=== PATIENT | female | born 1960 | race Caucasian/White ===

== ENCOUNTER → 2022-05-02 13:51 | Outpatient (BNVA) | payer OTHER, SELFPAY | PROVIDERS: PCP Internal Medicine; Visit Provider Internal Medicine Rheumatology | DX: M79.7 Fibromyalgia (principal); M79.672 Pain in left foot | CPT/HCPCS: 99212 ==

== ENCOUNTER 2022-05-05 09:23 | Outpatient (REF) | payer OTHER, SELFPAY ==
--- NOTE | ~2022-05-05 | XR_ITS ---
EXAMINATION: XR foot LT min 3V CLINICAL INFORMATION: Reason for Exam M79.672 - Pain in left foot COMPARISON: None. TECHNIQUE: AP, lateral, and oblique views of the left foot XR/XR foot LT min 3V FINDINGS/IMPRESSION: * No acute fracture or dislocation. * Joint spaces are maintained without significant degenerative change. * No soft tissue abnormality.
== END 2022-05-05 09:24 | disposition home or self-care (01) ==
LOC: HO.XRAY 09:23
PROVIDERS: PCP Internal Medicine; Visit Provider Internal Medicine Rheumatology
DX: M79.672 Pain in left foot (principal); M79.7 Fibromyalgia
CPT/HCPCS: 73630

== ENCOUNTER → 2022-10-27 08:37 | Outpatient (BNVA) | payer OTHER, SELFPAY | PROVIDERS: PCP Internal Medicine; Visit Provider Internal Medicine Rheumatology | DX: M72.2 Plantar fascial fibromatosis (principal); M79.7 Fibromyalgia | CPT/HCPCS: 99212 ==

== ENCOUNTER 2023-10-31 09:09 | Outpatient (AMB) | payer OTHER, SELFPAY ==
--- NOTE | 2023-10-31 09:15 | MHC.OFFVIS ---
Vital Signs 10/31/23 09:16 Height 5 ft 3 in Weight 192 lb 10.944 oz BMI 34.1 BP 122/64 Blood Pressure Location Rt brachial Position Sitting Pulse 83 Pulse Source Pulse Oximeter Pulse Oximetry (%) 95 Oxygen Delivery Method Room Air Intake Visit Reasons: RA Intake Note: Patient last seen by Dr Mendez 10/27/22 presents today for 1 year follow up. Recruiting Operations Consultant Required: No Accompanied by: Spouse Allergies No Known Allergies Allergy (Unverified 10/31/23 09:32) Medication List - Last Reconciled 10/31/23 by Nadia Mattson MD acetaminophen (Tylenol) 650 mg PO Q4H PRN aspirin (Adult Low Dose Aspirin) 81 mg PO DAILY duloxetine 20 mg PO DAILY multivitamin 1 tab PO DAILY pregabalin 200 mg PO BID rosuvastatin 40 mg PO DAILY HPI Comments Details: 63-year-old female with fibromyalgia returns for follow-up. Continues to have ongoing muscle aches, but feels about the same overall. Symptoms fairly well controlled with duloxetine and pregabalin Most recent history by Dr. Mendez 10/2022: The patient returns today with her for evaluation of her fibromyalgia. She says symptoms are about the same. She seems to be tolerating Cymbalta 20 mg daily and Lyrica 200 mg twice a day. These medicines do not cause any sedation. She gets pain in the feet intermittently mostly around the heels but also sometimes pains are in the shoulders, neck, and hands. She has plans to go to [facility] to be with family this summer and probably will not be back in the [place] untill the fall. She is going to be living in [place] at that point but come back in next spring to [place]. [facility], [facility] Surgical History No pertinent past surgical history Family History Father Hypertension Coronary artery disease Hyperlipidemia Social History Household Members: Spouse Housing: House Alcohol intake: never Patient Tobacco Use Status: Current someday Tobacco user Tobacco use type: Cigarette e-Cigarette/Vaping Use: Never Used service: No Current occupational status: retired Current occupation: Department store merchandiser previously Review of Systems [facility] Details: Muscle pain Reports myalgias Physical Exam Vital Signs: Last Vital Signs Pulse 83 10/31/23 09:16 BP 122/64 10/31/23 09:16 Pulse Ox 95 10/31/23 09:16 Oxygen Delivery Method Room Air 10/31/23 09:16 BMI result Body Mass Index 34.1 Const General: cooperative, healthy appearing and comfortable Nutritional Appearance: obese Orientation/consciousness: patient oriented x3 Limitations: no limitations HEENT Head: Yes normocephalic and Yes atraumatic Mouth: moist mucous membranes Resp Effort & Inspection: normal respiratory effort and able to speak in complete sentences Auscultation: clear to auscultation bilaterally Cardio Rate: regular rate Rhythm: regular rhythm GI Inspection: No distended Palpation (GI): Soft to palpation and nontender Neuro General: patient oriented x3 Extrem Other: No active synovitis. Assessment & Plan Assessment & Plan (1) Fibromyalgia: Code(s): M79.7 - Fibromyalgia Category: Medical Plan: 63-year-old female with fibromyalgia returns for follow-up. This is her 1st visit with me. She used to follow-up with Dr. Mendez. Her symptoms are fairly well controlled with duloxetine 20 mg daily and pregabalin 200 mg Twice daily. I refilled her pregabalin. She gets the duloxetine from another provider. Follow-up in 6 months Plan I spent 15 minutes reviewing patient's chart, evaluating patient, , counseling patient and documenting in the chart Medications: Refilled pregabalin 200 mg PO BID 60 caps 5RF M79.7 - Fibromyalgia
[2023-10-31 09:16] VITALS: BP 122/64; PULSE 83; O2SAT 95; BMI 34.1
== END 2023-10-31 09:44 | disposition home or self-care (01) ==
LOC: HO.RHE 09:09
PROVIDERS: PCP Internal Medicine; Visit Provider Student in an Organized Health Care Education/Training Program
DX: M79.7 Fibromyalgia (principal)
CPT/HCPCS: 99213

== ENCOUNTER → 2023-10-31 09:09 | Outpatient (BNVA) | payer OTHER, SELFPAY | PROVIDERS: PCP Internal Medicine; Visit Provider Student in an Organized Health Care Education/Training Program | DX: M79.7 Fibromyalgia (principal) | CPT/HCPCS: 99212 ==

== ENCOUNTER 2024-05-01 09:19 | Outpatient (AMB) | payer OTHER, SELFPAY ==
--- NOTE | 2024-05-01 09:22 | A.OFFVIS_ITS ---
Vital Signs 05/01/24 09:27 Height 5 ft 3 in Weight 192 lb 10.944 oz BMI 34.1 BP 130/62 Blood Pressure Location Rt brachial Position Sitting Pulse 74 Pulse Source Pulse Oximeter Pulse Oximetry (%) 94 Oxygen Delivery Method Room Air Intake Visit Reasons: FMS Intake Note: Patient presents for FMS. Allergies No Known Allergies Allergy (Verified 05/01/24 09:27) Medication List - Last Reconciled 05/01/24 by Nadia Mattson MD acetaminophen (Tylenol) 650 mg PO Q4H PRN aspirin (Adult Low Dose Aspirin) 81 mg PO DAILY duloxetine 20 mg PO DAILY multivitamin 1 tab PO DAILY pregabalin 200 mg PO BID rosuvastatin 40 mg PO DAILY HPI Comments Details: 64 year-old female with fibromyalgia returns for follow-up. Continues to have ongoing muscle aches, but feels about the same overall. 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 [employer] Reports myalgias Physical Exam Vital Signs: Last Vital Signs Pulse 74 05/01/24 09:27 BP 130/62 05/01/24 09:27 Pulse Ox 94 05/01/24 09:27 Oxygen Delivery Method Room Air 05/01/24 09:27 BMI result Body Mass Index 34.1 Const General: cooperative, healthy appearing and comfortable Nutritional Appearance: obese Orientation/consciousness: patient oriented x3 Limitations: no limitations HEENT Head: Yes normocephalic and Yes atraumatic Mouth: moist mucous membranes Resp Effort & Inspection: normal respiratory effort and able to speak in complete sentences Auscultation: clear to auscultation bilaterally Cardio Rate: regular rate Rhythm: regular rhythm GI Inspection: No distended Palpation (GI): Soft to palpation and nontender Neuro General: patient oriented x3 Extrem Other: No active synovitis. Assessment & Plan Assessment & Plan (1) Fibromyalgia: Code(s): M79.7 - Fibromyalgia Category: Medical Plan: 64-year-old female with fibromyalgia returns for follow-up. Her symptoms are fairly well controlled with duloxetine 20 mg daily and pregabalin 200 mg Twice daily. I will refill her pregabalin. She gets the duloxetine from another provider. Follow-up in 6 months Plan I spent 15 minutes reviewing patient's chart, evaluating patient, , counseling patient and documenting in the chart Coding Level of Care Code Est Pt Level 3 (95389) Diagnoses Fibromyalgia M79.7
[2024-05-01 09:27] VITALS: BP 130/62; PULSE 74; O2SAT 94; BMI 34.1
== END 2024-05-01 10:34 | disposition home or self-care (01) ==
PROVIDERS: PCP Internal Medicine; Visit Provider Student in an Organized Health Care Education/Training Program
DX: M79.7 Fibromyalgia (principal)
CPT/HCPCS: 99213

== ENCOUNTER → 2024-05-01 09:19 | Outpatient (BNVA) | payer OTHER, SELFPAY | PROVIDERS: PCP Internal Medicine; Visit Provider Student in an Organized Health Care Education/Training Program | DX: M79.7 Fibromyalgia (principal) | CPT/HCPCS: 99212 ==

== ENCOUNTER 2024-12-05 12:39 | Outpatient (AMB) | payer OTHER, SELFPAY ==
[2024-12-05 12:40] VITALS: BP 120/72; PULSE 81; O2SAT 96; BMI 35.4
--- NOTE | 2024-12-05 12:40 | MHC.OFFVIS ---
Vital Signs 12/05/24 12:40 Height 5 ft 3 in Weight 200 lb 0.2 oz BMI 35.4 BP 120/72 Blood Pressure Location Lt brachial Position Sitting Pulse 81 Pulse Source Pulse Oximeter Pulse Oximetry (%) 96 Intake Visit Reasons: FMS Intake Note: Patient presents for FMS. Hydrogen Cell Tender Name: kaushik Information Interpreted: non-clinical & clinical Accompanied by: Spouse Allergies No Known Allergies Allergy (Verified 12/05/24 12:40) HPI HPI FMS: Details: Sami speaking. , Kaushik interprets. She has pain when she walks or with prolonged standing. Pain in mainly in her knees. Sometimes she has wrist and knee swelling. Few times a week. Lasts 1-2 days. She takes Tylenol 500 mg a few times a week to relieve knee pain. MS 10 minutes PFS Surgical History No pertinent past surgical history Family History Father Hypertension Coronary artery disease Hyperlipidemia Social History Household Members: Spouse Housing: House Alcohol intake: never Patient Tobacco Use Status: Current someday Tobacco user Tobacco use type: Cigarette e-Cigarette/Vaping Use: Never Used service: No Current occupational status: retired Current occupation: Department store merchandiser previously Physical Exam Vital Signs: Last Vital Signs Pulse 81 12/05/24 12:40 BP 120/72 12/05/24 12:40 Pulse Ox 96 12/05/24 12:40 BMI result Body Mass Index 35.4 Const Other: General: Comfortable CVS: RRR Respiratory: clear to auscultation bilaterally. Good respiratory effort Skin: No lesions seen MSK: Tender to palpate bilateral knees along joint line. No joint effusion. Mild valgus deformity of knees. Knee flexion 90 degrees left, right 110 degrees. Pain with knee flexion. No crepitus. No synovitis of any joint. Normal range of motion of upper extremities. Assessment & Plan Assessment & Plan (1) Knee pain, bilateral: Comment: She has clinical osteoarthritis. We discussed further investigation with x-ray and conservative management. She is currently on duloxetine for fibromyalgia. I recommended increasing her maintenance duloxetine dose for further benefit as it is indicated to treat knee pain from osteoarthritis. Code(s): M25.561 - Pain in right knee; M25.562 - Pain in left knee Category: Medical Qualifiers: Chronicity: chronic Qualified Code(s): M25.561 - Pain in right knee; M25.562 - Pain in left knee; G89.29 - Other chronic pain Plan: Increase duloxetine to 30 mg daily Bilateral knee x-rays ordered I recommend that she try compression brace OTC. If no improvement with wearing compression brace, I will prescribe hinged brace. She is leaving for [place] next Monday and we will not have enough time to obtain hinged brace from [facility] supply store. Exercises for knee strengthening given to patient Continue to use Tylenol 500 mg PRN pain I have ordered creatinine, AST and ALT for drug monitoring on duloxetine and Tylenol Return to clinic in April when she returns from [facility] (2) Fibromyalgia: Comment: Controlled on pregabalin and duloxetine Code(s): M79.7 - Fibromyalgia Category: Medical Plan: Continue pregabalin 200 mg b.i.d. I have increase duloxetine to 30 mg daily to better control knee pain. See above. Information on fibromyalgia given to patient Creatinine ordered for drug monitoring as patient requested refills to cover her while she is in [facility] until end of March I recommend that she obtain future refills of pregabalin and duloxetine from PCP for fibromyalgia management/chronic pain management Orders: Orders XR knee RT 2V Today M17.0 - Bilateral primary osteoarthritis of knee XR knee LT 2V Today M17.0 - Bilateral primary osteoarthritis of knee Creatinine Today M25.561 - Pain in right knee, M25.562 - Pain in left knee Aspartate Amino Transferase Today G89.29 - Other chronic pain, M25.561 - Pain in right knee, M25.562 - Pain in left knee, M79.7 - Fibromyalgia Alanine Aminotransferase Today G89.29 - Other chronic pain, M25.561 - Pain in right knee, M25.562 - Pain in left knee, M79.7 - Fibromyalgia Medications: New duloxetine 30 mg PO DAILY 90 caps 1RF Refilled pregabalin 200 mg PO BID 180 caps 1RF M79.7 - Fibromyalgia Coding Level of Care Code Est Pt Level 4 (65914) Complex EM visit Add On G2211 Diagnoses Chronic pain of both knees M25.561; M25.562; G89.29 Chronicity: chronic Fibromyalgia M79.7 Time Spent (min) 30
--- OUTSIDE RECORDS SUMMARY | 2024-12-05 12:41 | XMS_ITS | Encounter Summary ---
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 Social History Tobacco Use Types Packs/Day Years Used Date Smoking Tobacco: Former Cigarettes Smokeless Tobacco: Never Alcohol Use Standard Drinks/Week Comments Yes 0 (1 standard drink = 0.6 oz pur e alcohol) Comments No Sex and Gender Information Value Date Recorded Sex Assigned at Not on file Legal Sex Female 2:15 PM EST Gender Identity Not on file Sexual Orientation Not on file documented as of this encounter Plan of Treatment Upcoming Encounters Date Type Department Care Team (Late Contact Info) Description 04/08/2025 8:30 AM EDT Office Visit Adult Medicine [address] [phone] Brenda Koo MD [address] [place] [phone] documented as of this encounter Procedures Procedure Name Priority Date/Time Associated Diagnosis Comments TISSUE EXAM Routine 11/20/2024 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 Submucosal fibroma 11/22/2024 10:34 AM EDT [facility] Gross Description A. Oral Cavity, right buccal mucosa 5 mm sessile mass: Labeled right buccal mucosa . Received in formalin is a 0.8 x 0.7 x 0.6 cm shahid-white mucosal covered rubbery nodule. The margin is inked black. The specimen is bisected, wrapped in paper, and entirely submitted in one cassette, two pieces, multiple levels on one slide. YANIV 11/22/2024 10:34 AM EDT [facility] Disclaimer Unless otherwise specified, all tissue is 10% NB formalin fixed and paraffin embedded. 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
== END 2024-12-05 13:34 | disposition home or self-care (01) ==
LOC: HO.RHES 12:39
PROVIDERS: PCP Internal Medicine; Visit Provider Internal Medicine Rheumatology
DX: M25.561 Pain in right knee (principal); M25.562 Pain in left knee; G89.29 Other chronic pain; M79.7 Fibromyalgia
CPT/HCPCS: 99214; G2211

== ENCOUNTER → 2024-12-05 12:39 | Outpatient (BNVA) | payer OTHER, SELFPAY | PROVIDERS: PCP Internal Medicine; Visit Provider Internal Medicine Rheumatology | DX: M25.561 Pain in right knee (principal); M25.562 Pain in left knee; M79.7 Fibromyalgia; G89.29 Other chronic pain | CPT/HCPCS: 99212 ==